=== PATIENT | male | born 1985 ===

== ENCOUNTER 2025-02-15 06:23 | Day surgery (SDC) | payer OTHER, SELFPAY | END 2025-02-15 14:57 | disposition home or self-care (01) | LOC: GI 06:23 | PROVIDERS: ATTENDING PHYSICIAN Internal Medicine Gastroenterology; FAMILY PHYSICIAN Family Medicine | DX: K20.0 Eosinophilic esophagitis (principal); K22.89 Other specified disease of esophagus | CPT/HCPCS: 43239; 88305; 88342 ==

== ENCOUNTER 2025-08-11 06:22 | Day surgery (SDC) | payer OTHER, SELFPAY | END 2025-08-11 09:46 | disposition home or self-care (01) | LOC: GI 06:22 | PROVIDERS: ATTENDING PHYSICIAN Internal Medicine Gastroenterology; FAMILY PHYSICIAN Family Medicine | DX: K20.0 Eosinophilic esophagitis (principal); K22.89 Other specified disease of esophagus | CPT/HCPCS: 43239; 88305 ==